=== PATIENT | female | born 2000 | race Caucasian/White ===

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

== ENCOUNTER 2020-05-20 11:39 | Emergency (ER) | payer SELFPAY ==
[2020-05-20 11:40] VITALS: BP 130/81; PULSE 90; RESP 16; TEMP 36.8; O2SAT 99; BMI 26.8
--- NOTE | 2020-05-20 11:54 | ED.DCSUM_ITS ---
- ER Visit Summary Date of Service: 05/20/20 Chief Complaint: [Sore throat] History of Present Illness: The patient is a 19 F [presents to the emergency department complaint of a sore throat that start about a week ago. Patient states that she was seen by her primary care physician because she had white sp ots on her tonsils and had a strep screen that was negative. Patient also started on amoxicillin at that time but feels like she is no better. Patient has pain mostly to the left side of her throat and she complained of some pain to her left ear. She denies any fevers. She has been feeling more fatigued. Patient also has a cough and a runny nose. No exposures to any known individuals with COVID-19. She denies any sick contacts. She has no medical history.] Physical Examination: [HEENT-PERRLA, EOMI. Cranial nerves II through XII grossly intact. TMs clear. Mucous membranes moist. No adenopathy. Mild pharyngeal erythema. She has some mild tonsillar enlargement on the left compared to the right. She has some sulfur-like granules on both tonsils noted. No significant exudates noted. Patient has no trismus. Uvula is in the midline. No evidence of peritonsillar abscess noted. Cardiovascular-regular rate and rhythm without murmur or ectopy Lungs-clear to auscultation, chest wall stable without crepitus or subcu emphysema Abdomen-normoactive bowel sounds, soft, nontender, no rebound or rigidity, no peritoneal signs. Extremities-intact ?4, normal range of motion, normal pulses, atraumatic] Test Results: [Monospot was negative. COVID-19 test pending. Culture of throat also obtained and will be pending] Emergency Department Course and Treatment: [] Treatment Plan: [Patient advised to self quarantine for 14 days. Patient advised to follow-up with ENT if the throat pain continues. She understands culture results may take 3 to 5 days. Patient advised to return if difficulty swallowing or condition should worsen anyway.] Disposition: [Discharged home in stable condition] Impression: [Viral URI-rule out COVID-19] This note was generated with [employer] software. It may contain incorrect words, spelling, and punctuation that were not noted in review of the chart prior to signing ED Disposition - Plan for ED Patient: Referrals: Pool Arauz MD [Primary Care Provider] -
[2020-05-20 13:06] LABS: Internal QC Validated? YES +Cl - CLEAR BKGD; Monotest Negative (Negative)
--- NOTE | 2020-05-20 13:09 | ED.DEP ---
ED Disposition - Plan for ED Patient: Instructions: ED URI Viral Referrals: Pool Arauz MD [Primary Care Provider] - 5-7 Days Jonathan Izquierdo MD [STAFF PHYSICIAN] - 5-7 Days
[2020-05-20 13:21] VITALS: BP 111/88; PULSE 75; RESP 18; O2SAT 97
== END 2020-05-20 13:20 | disposition home or self-care (01) ==
PROVIDERS: Emergency Provider Emergency Medicine; PCP Pediatrics
DX: J06.9 Acute upper respiratory infection, unspecified (principal)
CPT/HCPCS: 86308; 87070; 87635; 99282; G2023; U0003

== ENCOUNTER → 2020-05-27 10:38 | Outpatient (CLI) | payer SELFPAY ==
[2020-05-20 11:40] VITALS: BMI 26.8
== END ==
PROVIDERS: PCP Pediatrics; Referring Provider Otolaryngology Otolaryngology/Facial Plastic Surgery; Visit Provider Otolaryngology Otolaryngology/Facial Plastic Surgery
DX: J02.9 Acute pharyngitis, unspecified (principal)

== ENCOUNTER → 2020-05-27 | Outpatient (CLI) | payer SELFPAY ==
[2020-05-20 11:40] VITALS: BMI 26.8
== END | disposition home or self-care (01) ==
LOC: LABSPEC 11:01
PROVIDERS: PCP Pediatrics; Visit Provider Otolaryngology Otolaryngology/Facial Plastic Surgery
DX: J02.9 Acute pharyngitis, unspecified (principal)
CPT/HCPCS: 87070